=== PATIENT | female | born 1965 | race Caucasian/White ===

== ENCOUNTER 2019-08-30 09:47 | Inpatient (IN) | payer OTHER, SELFPAY ==
[2019-08-30] VITALS (8 sets, daily range): BP systolic 96–136; BP diastolic 65–82; PULSE 72–116; RESP 18–20; TEMP 36.5–37.7; O2SAT 90–93; BMI 35.6
--- NOTE | ~2019-08-30 | US_ITS ---
EXAMINATION:US venous doppler LE BI INDICATION:Elevated d-dimer TECHNIQUE: Multiple grayscale, color flow and Doppler images of the lower extremity deep venous syste ms were obtained and reviewed. COMPARISON:No prior studies for comparison. FINDINGS: The common femoral, superficial femoral and popliteal veins demonstrate normal respiratory variation, augmentation and compressibility. Color flow is also seen within the posterior tibial, pe roneal, greater saphenous and profunda veins. IMPRESSION: 1: No lower extremity deep venous thrombosis. Reviewed, dictated and finalized at location A. RACT MANAGEMENT SPECIALIST
--- NOTE | ~2019-08-30 | CT_ITS ---
EXAMINATION: CTA chest PE protocol DATE: 08/30/2019 12:27 INDICATION: Shortness of breath. Left perihilar mass. TECHNIQUE: Computed tomography angiography (CTA) of the chest was performed with 100 mL Omnipaque-350 intravenous contrast timed to evaluate the pulmonary arteries. Coronal maximum intensity projection 3D-reconstructions were created by the technologist. Automated exposure control and iterative reconst ruction technique were employed. The dose-length product was 686.61 mGy-cm. COMPARISON: Chest 2 views 08/30/2019 FINDINGS: There is severe emphysema. There is mild atelectasis in right lower lobe and right middle l obe. There are patchy airspace opacities in left upper lobe and left lower lobe. No pleural effusion. There is no pulmonary embolus. The heart size is normal. There are coronary artery calcifications. N o pericardial effusion. There is mild mediastinal lymphadenopathy. For example, a prevascular node me asures 11 x 33 mm. There are chronic compression fractures of C7, T7, and T9. IMPRESSION: 1. No pulmonary embolus. Sensitivity is mildly decreased by suboptimal contrast bolus timing. 2. Patchy airspace opacities in left lung, consistent with pneumonia. Follow-up imaging is recommende d after treatment in a few weeks to exclude malignancy. 3. Severe emphysema. Reviewed, dictated and finalized at location A. S SETUP OPERATOR IMPRESSION: 1. No pulmonary embolus. Sensitivity is mildly decreased by suboptimal contrast bolus timing. 2. Patchy airspace opacities in left lung, consistent with pneumonia. Follow-up imaging is recommended after treatment in a few weeks to exclude malignancy. 3. Severe emphysema.
--- NOTE | ~2019-08-30 | XR_ITS ---
EXAMINATION: XR chest 2V EXAM DATE: 08/30/2019 10:53 INDICATION: Cough and fever. TECHNIQUE: Frontal and lateral projections of the chest obtained and reviewed. Comparison is made to prior examination from 02/20/2015. FINDINGS: Interval development of extensive infiltrative appearing left perihilar airspace disease. There are additional left upper lobe reticulonodular opacities. Right lung is clear. No pleural effus ion. There is no pneumothorax suspected. Cardiomediastinal silhouette is normal. IMPRESSION: Extensive left perihilar predominant airspace disease. Pneumonia and/or cancer. Clinical correlation, follow-up or additional imaging as indicated. Reviewed, dictated and finalized at location B. METRY DOCTOR IMPRESSION: Extensive left perihilar predominant airspace disease. Pneumonia an d/or cancer. Clinical correlation, follow-up or additional imaging as indicated .
--- NOTE | 2019-08-30 10:13 | ECG_ITS ---
Measurements Intervals [place] Rate: 94 P: 64 OK: 172 QRS: -19 QRSD: 77 T: 49 QT: 338 QTc: 425 Interpretive Statements SINUS RHYTHM BASELINE ARTIFACT- I, II, III, AVR, AVL, V1-V3 NORMAL ECG Electronically Signed On 08-30-2019 18:46:08 INDEPENDENT MARKETING CONSULTANT by Rhett Thompson D.O.
--- NOTE | 2019-08-30 10:21 | ED.GENADULT ---
HPI - General Adult General Chief complaint: Chest Pain Stated complaint: sick since 08/13 keeps getting weaker Time Seen by Provider: 08/30/19 10:00 Source: patient and family Mode of arrival: ambulatory Limitations: no limitations History of Present Illness HPI narrative: Tamra is a 54-year-old female patient. She presents ambulatory to the emergency room with her . She states that she has been sick ever since she received the pneumonia shot on August 13, 2019. She has been feeling weak and tired. She has had a cough which is productive at times. She has some yellow sputum. She thinks she has had fever. She has pain to the left scapular a day which has been going on for about 3-4 days. Nothing makes this pain better or worse. It is an intermittent sharp pain. She rates it currently at about 7 or 8. She has been taking some Tylenol but it does not help with this pain. She has history of COPD. She is a heavy smoker. She smoked 1 pack of cigarettes a day for 25 years. She then quit 10 years ago and started smoking E cigarettes which she has been smoking for the past 10 years. She also has history of GERD and takes omeprazole for that. She states that at the age of 18 years she had cone biopsy of the cervix. No other surgeries. No history of hypertension heart disease or other problems. her temperature in the emergency room is 99.8? F ( 37.7 C) Onset (ago): day(s) (18 Days ago) Location: back ( left scapular region. See HPI narrative for details) Radiation: non-radiation Severity: moderate Severity scale (1-10): 7 Quality: sharp Relieving factors: none Exacerbating factors: none Treatments prior to arrival: other ( Tylenol) Related Data Home Medications Medication Instructions Recorded Confirmed budesonide-formoterol [Symbicort] 2 puff INHALATION BID 08/30/19 08/30/19 omeprazole 20 mg PO DAILY 08/30/19 08/30/19 Allergies Allergy/AdvReac Type Severity Reaction Status Date / Time No Known Allergies Allergy Unverified 06/29/15 10:49 Review of Systems Review of Systems: All systems reviewed & are unremarkable except as noted in HPI and below Constitutional: Constitutional: Reports no additional constitutional complaints, Reports fever(s) and Reports weakness Eyes: Eyes: Reports no additional eye complaints and Denies change in vision ENT: Reports system reviewed and no additional complaints, except as documented, Denies vertigo and Denies sore throat Cardiovascular: Cardiovascular: Reports no additional cardiovascular complaints Comments: no chest pain as such. Pain to the left scapular area as noted in HPI narrative. Electrocardiogram is normal. Respiratory: Respiratory: Reports no additional respiratory complaints and Reports cough Gastrointestinal: Gastrointestinal: Reports no additional gastrointestinal complaints, Denies nausea and Denies vomiting Comments: History of GERD Genitourinary: Genitourinary: Reports no additional female genitourinary complaints, Denies hematuria and Denies dysuria Musculoskeletal: Comments: left scapular pain as noted in HPI narrative Integumentary/Breasts: Skin/Breast: Denies erythema and Denies rash Neurologic: Reports system reviewed and no additional complaints, except as documented Comments: anxiety Psychiatric: Psychiatric: Reports no additional psychiatric complaints and Reports anxiety Endocrine: Endocrine: Reports no additional endocrine complaints, Denies polydipsia and Denies polyuria Hematologic/Lymphatic: Hematologic/Lymphatic: Reports no additional hematologic/lymphatic complaints, Denies easy bleeding and Denies easy bruising PMF Past Medical History Medical History (Updated 08/30/19 @ 10:31 by Carl Reyes MD) COPD (chronic obstructive pulmonary disease) GERD (gastroesophageal reflux disease) Surgical History Surgical History (Updated 08/30/19 @ 10:32 by Carl Reyes MD) H/O cone biopsy of cervix Family His
[2019-08-30] MEDS: KETOROLAC 30 MG/ML VIAL (*BKC) IV PUSH (10:22)
[2019-08-30 10:53] LABS: Basophils Absolute Auto 0.04 K/mm3 (0.00-0.10); Basophils Percent Auto 0.3 % (0.0-1.0); Eosinophils Absolute Auto 0.07 K/mm3 (0.02-0.50); Eosinophils Percent Auto 0.5 % (1.0-6.0); Hematocrit 39.6 % (35.0-49.0); Hemoglobin 13.1 g/dL (12.0-15.0); Immature Granulocyte Absolute 0.07 K/mm3 (0.00-0.00); Immature Granulocyte Percent A 0.5 % (0.0-0.0); Lymphocytes Absolute Auto 1.94 K/mm3 (1.10-4.50); Lymphocytes Percent Auto 13.9 % (18.0-42.0); Mean Corpuscular HGB Conc 33.1 g/dL (32.0-36.0); Mean Corpuscular Hemoglobin 29.3 pg (27.0-31.0); Mean Corpuscular Volume 88.6 fL (78.0-102.0); Mean Platelet Volume 8.2 fl (9.2-11.8); Monocytes Absolute Auto 1.27 K/mm3 (0.10-0.90); Monocytes Percent Auto 9.1 % (2.0-11.0); Neutrophils Absolute Auto 10.6 K/mm3 (1.7-7.2); Neutrophils Percent Auto 75.7 % (50.0-70.0); Platelet Count Result 661 K/mm3 (150-420); Red Blood Count 4.47 M/mm3 (4.20-5.40); Red Cell Distribution Width 12.6 % (11.6-14.4)
--- NOTE | 2019-08-30 10:54 | PC.NURSE ---
Report given to Ed Lovelace
[2019-08-30 11:00] LABS: Add Urine Microscopic? YES; Appearance Urine Sl Cloudy (Clear); Bilirubin Urine 1+ (Negative); Blood Urine Negative (Negative); Color Urine Straw (Yellow); Glucose Urine UA Negative (Negative); Ketones Urine Negative (Negative); Leukocyte Esterase Ur Trace LEU/UL (Negative); Nitrate Urine Negative (Negative); Protein Urine Negative (Negative)
[2019-08-30 11:05] LABS: RBC Urine 0-2 /hpf (0-2); Squamous Epithelial Cell Urine Moderate /hpf (Few); WBC Urine 0-3 /hpf (0-3)
[2019-08-30 11:06] LABS: Bacteria Urine 2+ /hpf
[2019-08-30 11:09] LABS: Influenza Control Valid (Valid)
[2019-08-30 11:16] LABS: Prothrombin Time 10.7 Seconds (9.64-11.0)
[2019-08-30 11:18] LABS: Alanine Aminotransferase 18 U/L (14-59); Albumin Level 2.5 g/dL (3.4-5.0); Alkaline Phosphatase 86 U/L (46-116); Anion Gap 15.4 mmol/L (7-16); Aspartate Amino Transferase 24 U/L (15-37); Bilirubin,Total 0.7 mg/dL (0.00-1.00); Blood Urea Nitrogen 11 mg/dL (7-18); Calcium 9.1 mg/dL (8.5-10.1); Carbon Dioxide 25 mmol/L (21-32); Chloride 99 mmol/L (98-108); Creatine Kinase 25 U/L (26-192); Estimated CRCL calculation 77 ml/min; Estimated Glomerular Filt Rate > 60; Glucose 108 mg/dL (70-99); Osmolality Calculated 280 mOsm/kg (285-295); Potassium 4.4 mmol/L (3.5-5.1); Sodium 135 mmol/L (136-145); Total Protein 8.3 g/dL (6.4-8.2)
[2019-08-30 11:19] LABS: Creatine Kinase MB < 0.50 ng/mL (0.00-5.00); Troponin I < 0.02 ng/mL (0.00-0.056)
[2019-08-30 11:32] LABS: D Dimer 1.15 mg/L (0.19-0.50)
[2019-08-30 11:58] LABS: Erythrocyte Sedimentation Rate 45 mm/hr (0-20)
[2019-08-30 13:33] LABS: Base Excess ABG 3.6 mmol/L (0-2); HCO3 ABG 27.6 mmol/L (23-29); Oxygen Content ABG 17.4 %vol (16.0-22.0); Oxyhemoglobin 89.4 % (94-100); PCO2 ABG 39.9 mmHg (35-45); PO2 ABG 55.9 mmHg (80-90); Total Hemoglobin 13.9 g/dL; pH ABG 7.46 (7.35-7.45)
[2019-08-30 13:34] LABS: Device ROOM AIR; Modified Allen's Test Pass; Site Drawn LEFT RADIAL
--- NOTE | 2019-08-30 14:48 | PM.IMHP ---
H&P: HPI History of Present Illness Chief complaint: sick since 08/13 keeps getting weaker Narrative: Tamra Carlson is a 54 year old female that presented to the ED with complaints being sick since August 13 after receiving the pneumonia shot Chief complaint are productive cough, body ache, subjective fever, fatigue, rhinorrhea and left shoulder pain. patient's past medical history COPD and GERD.She has a which is productive with yellow sputum and has subjective fever she also has pain to left shoulder that she had been taking Tylenol for that is ineffective. Vital signs at 36.5, 60, 18, 98/59, 94% on 2 L nasal cannula. patient being admitted for pneumonia versus malignancy. This patient will be treated for pneumonia and instructed to follow-up for possible malignancy. while in the ED patient was given antibiotics, steroids and breathing treatment. a CTA, blood culture, UA culture, throat culture were also collected in the ED . the CTA was completed due to a positive D-dimer any indicated No pulmonary embolus. Sensitivity is mildly decreased by suboptimal contrast bolus timing. 2. Patchy airspace opacities in left lung, consistent with pneumonia. Follow-up imaging is recommended after treatment in a few weeks to exclude malignancy. 3. Severe emphysema. a chest x-ray was also completed indicated Extensive left perihilar predominant airspace disease. Pneumonia and/or cancer. Clinical correlation, follow-up or additional imaging as indicated. patient's white blood cell count was elevated to 12.2 and CPR elevated. Patient denies SOB, CP, palpitation, extremity numbness, lightheadness, dizziness, constipation, Or diarrhea, . Review of Systems Constitutional: Constitutional: Reports body ache(s), Reports chills, Reports fatigue and Reports fever(s) Cardiovascular: Cardiovascular: Denies chest pain at rest, Denies chest pain with activity, Denies syncope, Denies rapid heart rate, Denies palpitations and Denies dyspnea Respiratory: Respiratory: Reports chest congestion, Reports cough and Denies dyspnea Gastrointestinal: Gastrointestinal: Denies dysphagia, Denies dyspepsia, Denies diarrhea, Denies nausea and Denies vomiting Musculoskeletal: Musculoskeletal: Reports other ( left shoulder pain) Neurologic: Denies confusion, Denies vertigo, Denies dizziness, Denies syncope and Denies headache(s) Psychiatric: Psychiatric: Denies anxiety and Denies confusion [facility] Past Medical History Medical History (Updated 08/30/19 @ 14:50 by ROSIE Chavez) COPD (chronic obstructive pulmonary disease) GERD (gastroesophageal reflux disease) Surgical History Surgical History (Updated 08/30/19 @ 10:32 by Carl Reyes MD) H/O cone biopsy of cervix Family History Family History (Updated 08/30/19 @ 10:33 by Carl Reyes MD) Mother , mother at age 62 of throat cancer. She had COPD. She in 1991 No problems noted. Father , father in 1987 at age 61 of lung cancer No problems noted. Other Diabetes mellitus Family history of malignant neoplasm Hypertension Social History Social History (Updated 08/30/19 @ 10:35 by Carl Reyes MD) Years smoked: 35 Smoking status: Former smoker Tobacco type: cigarettes and e-cigarettes Smoking end date: 08/30/19 Additional smoking assessment comments: smoked 1 PPD/day x 25 years, then started e cigs last 10 yrs Alcohol intake: never Alcohol use details: unknown Substance use: never Gender identity (if verbalized by the patient): Female Spiritual care concerns: No Agree to blood products: Yes Meds Home Medications and Allergies Home Medications Medication Instructions Recorded Confirmed Type Symbicort 2 puff INHALATION BID 08/30/19 08/30/19 History omeprazole 20 mg PO DAILY 08/30/19 08/30/19 History acetaminophen [Mapap 1,000 mg PO Q6H PRN #30 tablet 08/31/19 Rx (acetaminophen)] albuterol s
[2019-08-30] MEDS: SODIUM CHLORIDE 0.9% IV 1,000 ML 100 ML IV CONT (15:44)
--- NOTE | 2019-08-30 16:24 | ADMGEN ---
This patient, Tamra Carlson, was admitted to 2nd Floor Room 208-2. Patient/family oriented to hospital policies and general routines including ID bracelet, bed and alarms, visiting hours, pain management, procedures, bathroom and other care routines, personal items, smoking policy, room service/diet, and visiting hours. Valuables list has been completed. Information on how to activate the Rapid Response Team has been discussed. Patient/Family are encouraged to report perceived risks to care and to ask questions if they do not understand what they are told or what they should do.
[2019-08-30] MEDS: BENZONATATE 100 MG CAPSULE 200 MG PO (17:14)
[2019-08-30] MEDS: ENOXAPARIN 40 MG/0.4 ML SYRINGE SUB-Q (17:14)
[2019-08-30] MEDS: BUDESONIDE/FORMOTEROL (*SP) 160-4.5 MCG 6 GM INH 2 PUFF INHALATION (17:14)
[2019-08-30] MEDS: IPRATROPIUM 0.5 MG/ALBUTEROL SULFATE 2.5 MG AMPUL.NEB 3 ML INHALATION (18:04)
[2019-08-30] MEDS: methylPREDNISolone SOD SUCC 40 MG VIAL IV PUSH (18:04)
[2019-08-31] VITALS (11 sets, daily range): BP systolic 90–104; BP diastolic 50–70; PULSE 58–112; RESP 16–18; TEMP 36–36.5; O2SAT 94–96
[2019-08-31] MEDS: IPRATROPIUM 0.5 MG/ALBUTEROL SULFATE 2.5 MG AMPUL.NEB 3 ML INHALATION ×2 (00:01→05:57)
[2019-08-31] MEDS: methylPREDNISolone SOD SUCC 40 MG VIAL IV PUSH ×2 (00:01→06:06)
[2019-08-31] MEDS: SODIUM CHLORIDE 0.9% IV 1,000 ML 100 ML IV CONT ×2 (02:53→08:22)
[2019-08-31 05:17] LABS: Basophils Absolute Auto 0.01 K/mm3 (0.00-0.10); Basophils Percent Auto 0.1 % (0.0-1.0); Hematocrit 36.8 % (35.0-49.0); Hemoglobin 11.9 g/dL (12.0-15.0); Immature Granulocyte Absolute 0.07 K/mm3 (0.00-0.00); Immature Granulocyte Percent A 0.6 % (0.0-0.0); Lymphocytes Absolute Auto 0.88 K/mm3 (1.10-4.50); Lymphocytes Percent Auto 7.2 % (18.0-42.0); Mean Corpuscular HGB Conc 32.3 g/dL (32.0-36.0); Mean Corpuscular Hemoglobin 28.9 pg (27.0-31.0); Mean Corpuscular Volume 89.3 fL (78.0-102.0); Mean Platelet Volume 8.3 fl (9.2-11.8); Monocytes Absolute Auto 0.14 K/mm3 (0.10-0.90); Monocytes Percent Auto 1.2 % (2.0-11.0); Neutrophils Absolute Auto 11.1 K/mm3 (1.7-7.2); Neutrophils Percent Auto 90.9 % (50.0-70.0); Platelet Count Result 621 K/mm3 (150-420); Red Blood Count 4.12 M/mm3 (4.20-5.40); Red Cell Distribution Width 12.4 % (11.6-14.4); White Blood Count 12.2 K/mm3 (4.8-10.8)
[2019-08-31 05:41] LABS: Alanine Aminotransferase 17 U/L (14-59); Albumin Level 2.3 g/dL (3.4-5.0); Alkaline Phosphatase 87 U/L (46-116); Anion Gap 14.5 mmol/L (7-16); Aspartate Amino Transferase 19 U/L (15-37); Bilirubin,Total 0.3 mg/dL (0.00-1.00); Blood Urea Nitrogen 14 mg/dL (7-18); Calcium 9.1 mg/dL (8.5-10.1); Carbon Dioxide 25 mmol/L (21-32); Chloride 103 mmol/L (98-108); Estimated CRCL calculation 78 ml/min; Estimated Glomerular Filt Rate > 60; Glucose 182 mg/dL (70-99); Osmolality Calculated 291 mOsm/kg (285-295); Potassium 4.5 mmol/L (3.5-5.1); Sodium 138 mmol/L (136-145)
--- NOTE | 2019-08-31 06:23 | PC.NURSE ---
Call placed to Dr Reyes regarding lab results and blood pressure readings, orders given for a 500ml bolus of NS.
[2019-08-31 06:26] LABS: Erythrocyte Sedimentation Rate 51 mm/hr (0-20)
[2019-08-31] MEDS: BENZONATATE 100 MG CAPSULE 200 MG PO (08:20)
[2019-08-31] MEDS: PANTOPRAZOLE 40 MG TABLET PO (08:21)
[2019-08-31] MEDS: BUDESONIDE/FORMOTEROL (*SP) 160-4.5 MCG 6 GM INH 2 PUFF INHALATION (08:22)
--- NOTE | 2019-08-31 09:45 | PM.DS ---
DS: Diagnosis Discharge Diagnosis (1) Pneumonia: Qualifiers: Laterality: left Lung location: lower lobe of lung Pneumonia type: due to unspecified organism Qualified Code(s): J18.9 - Pneumonia, unspecified organism Code(s): J18.9 - Pneumonia, unspecified organism Status: Acute Assessment and Plan: -CTA a indicates patchy airspace opacities and left lung consistent with pneumonia - CT indicate pneumonia or cancer - continue azithromycin and Rocephin - able to D/C prednisone for discharge - lung sounds are clear, no wheezing, no tightness, no cough. - continue with the treatment with nebulizers in or inhaler - able to D/C use of oxygen -completed Home O2 study and with ambulation SpO2 >94% on room air. - blood culture pending - All cultures will need to be F/U on with PCP and patient. - continued Mucinex and Tessalon Perles at discharge. (2) Emphysema of lung: Qualifiers: Emphysema type: panlobular Qualified Code(s): J43.1 - Panlobular emphysema Code(s): J43.9 - Emphysema, unspecified Status: Acute Assessment and Plan: patient with history of smoking, stated that she is stopping and will no longer smoking or vaping from this day forward. -Encouraged her to stop and F/U with PCP and/or [facility] for any further difficulties stopping. - will continue nebulizers, inhalers, and antibiotics at home. - no need for O2 at home, home O2 study tolerated on room air. (3) Leukocytosis: Qualifiers: Leukocytosis type: bandemia Qualified Code(s): D72.825 - Bandemia Code(s): D72.829 - Elevated white blood cell count, unspecified Status: Acute Assessment and Plan: secondary to pneumonia versus cancer - white blood cells at 14, improved with repeat CBC this morning, down to 12.2. -also may be elevated due to Steroid dosing. - continue use of antibiotics at discharge - she will need to F/U with PCP and warrant server. (4) Chest x-ray abnormality: Code(s): R93.89 - Abnormal findings on diagnostic imaging of other specified body structures Status: Acute Assessment and Plan: CTA and CT indicate possible malignancy follow-up imaging is recommended after treatment in a few weeks. - discussed findings with patient informed her that she would need to follow up with her PCP and [facility] to rule out cancer. DS: Summary Time Spent with Patient Time attestation: Total time spent providing and/or coordinating discharge services: >60 minutes Exam Const: General: comfortable, no acute distress ( mild/moderate distress), alert and ill appearing; No diaphoretic Nutritional Appearance: well nourished Orientation/consciousness: oriented x3 Limitations: no limitations HENMT: Ears: TM's normal bilaterally and EAC's normal Mouth: Yes moist mucous membranes Other: mild pharyngeal erythema noted. Nasal congestion noted. Eyes: General: appearance normal, both eyes and all related structures Pupils: PERRL EOM: EOM intact bilaterally Neck: Neck: normal visual inspection and no lymphadenopathy Carotids: no bruits Lymphatic: lymphadenopathy not noted Resp: Effort & Inspection: normal respiratory effort Auscultation: clear to auscultation bilaterally, no crackles, no rales, no rhonchi, no wheezes and lung sounds not diminished Other: Breath sounds are slightly decreased at both bases. Cardio: Rate: regular rate and not bradycardic Rhythm: regular rhythm Heart sounds: no murmurs Other: Pulse rate is 94 beats per minute, tachycardic at times with HR 100s, not above 110s. May be due to Steroids and/or Nebulizer treatments with Albuterol. GI: Inspection: non-distended GI Palp: Yes soft, No tender and No guarding Auscultation: normal bowel sounds Other: soft and nontender. No palpable masses. Normal bowel sounds. No organomegaly. : General: Yes no CVA tenderness Back/Spine/Pelvis: Back: no CVA tenderness Other: Some t
[2019-08-31 09:55] LABS: Phosphorus 4.9 mg/dL (2.6-4.7)
[2019-08-31 09:58] LABS: D Dimer 0.68 mg/L (0.19-0.50)
[2019-08-31 10:51] LABS: BNP 77.2 pg/mL (0-100)
[2019-08-31] MEDS: SODIUM CHLORIDE 0.9% IV 500 ML IV CONT (10:57)
--- NOTE | 2019-08-31 11:45 | PCDIET ---
1145am Patient is to be discharged and is getting last dose of Azithromycin IV before leaving per Nayana IT RISK ANALYST. Patient has family at bedside call light in reach.
--- NOTE | 2019-08-31 12:06 | PC.NURSE ---
12:00 PM Patient is resting in bed and has signed discharge papers at this time tele D/Julio VSS.
--- NOTE | 2019-08-31 13:04 | PC.NURSE ---
1300 Patient IV discontinued patient is ready to be discharged. I stated she will walk did not need a wheelchair.
--- NOTE | 2019-09-06 10:33 | PC.NURSE ---
Discharge call back [phone] Patient stated she feels so much better, understood her discharge instruction both verbal and written. Has a follow-up appointment with PCP for next week.
== END 2019-08-31 13:00 | disposition home or self-care (01) | DRG 139 ==
LOC: CHSED 14:09 → CHS2ND 14:28
PROVIDERS: Nurse Practitioner; Admitting Provider Surgery; Emergency Provider Surgery; PCP Physician Assistant; Visit Provider Surgery
DX: J18.9 Pneumonia, unspecified organism (principal); J43.9 Emphysema, unspecified; K21.9 Gastro-esophageal reflux disease without esophagitis; F17.290 Nicotine dependence, other tobacco product, uncomplicated
CPT/HCPCS: 36415; 36600; 71046; 71275; 80053; 81001; 82550; 82553; 82805; 83605; 83735; 83880; 84100; 84484; 85025; 85380; 85610; 85652; 85730; 86140; 87040; 87081; 87086; 87088; 87804; 87880; 93005; 93970; 94618; 94640; 96365; 96375; 99285; A9270; J0456; J0696; J1650; J1885; J2920; J7030; J7040; Q9965

== ENCOUNTER 2022-05-09 17:30 | Emergency (ER) | payer OTHER, SELFPAY ==
--- NOTE | ~2022-05-09 | XR_ITS ---
EXAM: XR tibia fibula RT 2V DATE: 05/09/2022 18:10 HISTORY: laceration, FB? . COMPARISON: None available. FINDINGS: Normal mineralization. No fracture or dislocation. No lytic or blastic lesion. Joint space s are maintained. No erosion or periosteal change. Varicosities. Vascular calcifications. IMPRESSION: No acute osseous finding in the right tibia or fibula. No radiopaque foreign body detecte d. Reviewed, dictated and finalized at location K. IMPRESSION: No acute osseous finding in the right tibia or fibula. No radiopaqu e foreign body detected.
[2022-05-09 17:47] VITALS: BP 109/98; PULSE 79; RESP 18; TEMP 36; O2SAT 96
[2022-05-09] MEDS: IBUPROFEN 400 MG TABLET 800 MG PO (18:11)
[2022-05-09] MEDS: TETANUS,DIPHTHERIA,AC PERTUSSIS ADULT 0.5 ML (ADACEL) IM (18:12)
[2022-05-09] MEDS: cefTRIAXone 1 GM, LIDOCAINE HCL 1% LOCAL INJ 2.1 ML IM (18:13)
[2022-05-09] MEDS: LIDOCAINE HCL 2% PF INJ 5 ML VIAL 2 ML INFILTRATE (18:14)
[2022-05-09 19:00] VITALS: BP 120/74; PULSE 78; RESP 18; O2SAT 98
[2022-05-09 19:20] VITALS: BP 115/74; PULSE 78; RESP 18; TEMP 36.2; O2SAT 98
--- NOTE | 2022-05-09 19:23 | ED.WOUNDLAC ---
HPI - Wound/Laceration General Chief Complaint: Wound/Laceration Stated Complaint: cut R leg on saw Time Seen by Provider: 05/09/22 17:33 Source: patient and RN notes reviewed Mode of arrival: ambulatory Limitations: no limitations History of Present Illness Onset (ago): hour(s) (1) Extremity Location: Right: lower leg Place: outdoors Context: accidental Associated symptoms: pain Related Data Home Medications Medication Instructions Recorded Confirmed budesonide-formoterol HFA 160 2 puff inhalation BID 08/30/19 05/09/22 mcg-4.5 mcg/actuation aerosol inhaler (Symbicort) omeprazole 20 mg capsule,delayed 20 mg PO DAILY 08/30/19 05/09/22 release Allergies Allergy/AdvReac Type Severity Reaction Status Date / Time No Known Allergies Allergy Unverified 10/13/21 15:18 Review of Systems Review of Systems: All systems reviewed & are unremarkable except as noted in HPI and below Constitutional: Constitutional: Reports no additional constitutional complaints Eyes: Eyes: Reports no additional eye complaints ENT: Reports system reviewed and no additional complaints, except as documented Cardiovascular: Cardiovascular: Reports no additional cardiovascular complaints Respiratory: Respiratory: Reports no additional respiratory complaints Gastrointestinal: Gastrointestinal: Reports no additional gastrointestinal complaints Genitourinary: Genitourinary: Reports no additional female genitourinary complaints Musculoskeletal: Comments: right calf 5 cm linear gaping laceration Integumentary/Breasts: Skin/Breast: Reports system reviewed and no additional complaints, except as docu Neurologic: Reports system reviewed and no additional complaints, except as documented Psychiatric: Psychiatric: Reports no additional psychiatric complaints Endocrine: Endocrine: Reports no additional endocrine complaints Hematologic/Lymphatic: Hematologic/Lymphatic: Reports no additional hematologic/lymphatic complaints Allergic/Immunologic: Allergic/Immunologic: Reports no additional allergic/immunologic complaints [facility] Past Medical History Medical History COPD (chronic obstructive pulmonary disease) GERD (gastroesophageal reflux disease) Laceration of right lower leg Surgical History Surgical History H/O cone biopsy of cervix Family History Family History Mother , mother at age 62 of throat cancer. She had COPD. She in 1991 No problems noted. Father , father in 1987 at age 61 of lung cancer No problems noted. Other Diabetes mellitus Family history of malignant neoplasm Hypertension Social History Social History Years smoked: 35 Smoking status: Former smoker Tobacco type: cigarettes and e-cigarettes/vaping Smoking end date: 08/30/19 Additional smoking assessment comments: smoked 1 PPD/day x 25 years, then started e cigs last 10 yrs Alcohol intake: never Alcohol use details: unknown Substance use: never Gender identity (if verbalized by the patient): Female Spiritual care concerns: No Agree to blood products: Yes Exam Const: General: no acute distress Nutritional Appearance: well nourished Orientation/consciousness: patient oriented x3 Limitations: no limitations HENMT: Head: normal to inspection Ears: external ears normal, TM's normal bilaterally and EAC's normal General nose exam: Normal external nose present and Normal nares present Face and sinus: normal facial exam and sinuses nontender Mouth: Yes Normal oral and palatal mucosa present and Yes moist mucous membranes Teeth and gingiva: dentition normal Throat: posterior oropharynx normal Eyes: Conjunctivae: conjunctivae normal Pupils: Equal, round and reac
== END 2022-05-09 19:36 | disposition home or self-care (01) ==
PROVIDERS: Emergency Provider Emergency Medicine; PCP Physician Assistant
DX: S81.811A Laceration without foreign body, right lower leg, initial encounter (principal); W27.0XXA Contact with workbench tool, initial encounter
CPT/HCPCS: 12001; 73590; 90471; 90715; 96372; 99283; A9270; J0696

== ENCOUNTER 2024-04-25 12:10 | Emergency (ER) | payer OTHER, SELFPAY ==
[2024-04-25 12:10] VITALS: BP 127/92; PULSE 85; RESP 18; TEMP 36.6; O2SAT 99
--- NOTE | 2024-04-25 12:25 | ED.EXTPRO ---
HPI - Extremity Problem General Chief complaint: Extremity Problem,Nontraumatic Stated complaint: PLANTARS WART Time Seen by Provider: 04/25/24 12:19 Source: patient and family Mode of arrival: ambulatory Limitations: no limitations History of Present Illness HPI Narrative: this is a 58-year-old female who presents with some irritated planter's wart on her right foot has tried [id number] medication with minimal relief has an appointment with Podiatry within the next week and a half but has been having increasing pain with walking rating her pain about a 7/10 there is no drainage no redness just tender with palpation and walking. Complaint: extremity pain Onset (ago): week(s) Pain Consistency: constant Location: right Severity scale (1-10): 7 Quality: aching Radiation: distal Relieving factors: immobilization Related Data Home Medications Medication Instructions Recorded Confirmed budesonide-formoterol HFA 160 2 puff inhalation BID 08/30/19 04/25/24 mcg-4.5 mcg/actuation aerosol inhaler (Symbicort) omeprazole 20 mg capsule,delayed 20 mg PO DAILY 08/30/19 04/25/24 release Allergies Allergy/AdvReac Type Severity Reaction Status Date / Time No Known Allergies Allergy Verified 04/25/24 12:25 Review of Systems Review of Systems: All systems reviewed & are unremarkable except as noted in HPI and below PMFSH Past Medical History Medical History COPD (chronic obstructive pulmonary disease) GERD (gastroesophageal reflux disease) Laceration of right lower leg Surgical History Surgical History H/O cone biopsy of cervix Family History Family History Mother , mother at age 62 of throat cancer. She had COPD. She in 1991 No problems noted. Father , father in 1987 at age 61 of lung cancer No problems noted. Other Diabetes mellitus Family history of malignant neoplasm Hypertension Social History Social History Years smoked: 35 Smoking status: Former smoker Tobacco type: cigarettes and e-cigarettes/vaping Smoking end date: 08/30/19 Additional smoking assessment comments: smoked 1 PPD/day x 25 years, then started e cigs last 10 yrs Alcohol intake: never Alcohol use details: unknown Substance use: never Gender identity (if verbalized by the patient): Female Spiritual care concerns: No Agree to blood products: Yes Exam Const: General: healthy appearing and no acute distress Nutritional Appearance: well nourished Orientation/consciousness: patient oriented x3 Resp: Effort & Inspection: normal respiratory effort Auscultation: clear to auscultation bilaterally Cardio: Rate: regular rate Rhythm: regular rhythm GI: GI Palp: Yes Soft to palpation Extrem: Other: Teena's wart on her right foot Course Course Emergency Course: received a dose of 60mg IM Toradol for pain relief. Critical Care Time Critical Care Time Critical Care Time: No Discharge Plan Discharge Clinical Impression: Warts of foot Patient Disposition: Home, Self-Care Condition: Stable Instructions: Antibiotic Form, Plantar Wart (ED) Additional Instructions: take medicine as prescribed and follow-up with podiatry as scheduled. Prescriptions: New tramadol 50 mg tablet 50 mg PO Q6H PRN (Reason: pain) Qty: 10 0RF No Action omeprazole 20 mg capsule,delayed release(DR/EC) 20 mg PO DAILY budesonide-formoterol [Symbicort] 160-4.5 mcg/actuation HFA aerosol inhaler 2 puff INHALATION BID ipratropium-albuterol 0.5 mg-3 mg(2.5 mg base)/3 mL Solution For Nebulization 3 ml inhalation Q4-6H 30 Days Qty: 180 0RF albuterol sulfate [Ventolin HFA] 90 mcg/actuation HFA aerosol inhaler
[2024-04-25] MEDS: KETOROLAC (*BKC) 60 MG/2 ML VIAL IM (12:40)
--- NOTE | 2024-04-25 13:13 | PC.NURSE ---
PT REPORTS PAIN IS MUCH BETTER, NO THROBBING NOTED WITH AMBULATION AT THIS TIME. PT REPORTS THE TRAMADOL DOES NOT WORK FOR HER, TO KEEP THE RX, SHE IS NOT GOING TO PICK IT UP. ERP IS NOTIFIED AND ADVISES TYLENOL FOR PAIN CONTROL.
== END 2024-04-25 12:50 | disposition home or self-care (01) ==
LOC: CHSED 12:36
PROVIDERS: Emergency Provider Emergency Medicine; PCP Physician Assistant
DX: B07.0 Plantar wart (principal); J44.9 Chronic obstructive pulmonary disease, unspecified; Z87.891 Personal history of nicotine dependence
CPT/HCPCS: 96372; 99283; J1885